=== PATIENT | female | born 1990 | race Caucasian/White ===

== ENCOUNTER 2016-04-14 13:07 | Emergency (ER) | payer OTHER ==
[~2016-04-14] VITALS: Ht 167.6 cm; Wt 90.7 kg
[2016-04-14 13:08] VITALS: BP 124/75
== END 2016-04-14 14:48 | disposition home or self-care (01) ==
LOC: ER 13:07
DX: S60.042A Contusion of left ring finger without damage to nail, initial encounter (principal); Y99.0 Civilian activity done for income or pay; Y93.89 Activity, other specified; Y92.69 Other specified industrial and construction area as the place of occurrence of the external cause
CPT/HCPCS: 29130; 73140